=== PATIENT | male | born 1960 | race Caucasian/White ===

== ENCOUNTER 2016-06-04 16:59 | Emergency (ER) | payer OTHER, BC ==
[2016-06-04 18:13] VITALS: BP 152/97
--- NOTE | 2016-06-05 00:50 | ER ---
DATE SEEN: 06/04/2016 TIME SEEN: 1730 hours. CHIEF COMPLAINT: Injury of the right wrist. HISTORY OF PRESENT ILLNESS: This is a 55-year-old male who fell on the right outstretched arm at work, complains of pain and difficulty with range of motion of that wrist. ALLERGIES: No known allergies. REVIEW OF SYSTEMS: No other injuries were sustained in this accident. PHYSICAL EXAMINATION: GENERAL: He is not in any distress. VITAL SIGNS: He has normal blood pressure and temperature. EXTREMITIES: Right wrist was in a sling. There was an obvious deformity and swelling. There is tenderness to palpation. Decreased range of motion, but his capillary refills peripherally normal and he has normal radius pulses. DIAGNOSTIC DATA: X-ray showed fracture of the radius. IMPRESSION: Radial fracture, closed. PLAN: Discharged home on hydrocodone, brace, ice and elevation. Follow up with PCP in the next 1 to 2 days. /[id number] LIA/FATMATA
--- NOTE | 2016-06-05 11:32 | CR ---
INDICATION: Fall with deformity. RIGHT WRIST: Three views of the right wrist revealed comminuted fracture of the distal radial metaphysis extending longitudinally into the shaft with extension through the joint surface and some possible depression of joint surface fracture fragments. The radial joint surface appears to be dorsally angulated moderately. Ulnar styloid fracture is also suggested with lateral offset of the distal fracture fragment. Moderately large wrist joint effusion is noted. IMPRESSION: Comminuted Colles' fracture fragment of the radius - associated ulnar styloid fracture. Mild to moderate deformity is suggested at the radial fracture site. MTDD
== END 2016-06-04 17:53 | disposition home or self-care (01) ==
LOC: FB.ED 16:59
DX: S52.531A Colles' fracture of right radius, initial encounter for closed fracture (principal); W19.XXXA Unspecified fall, initial encounter
CPT/HCPCS: 73110-RT; 99283